=== PATIENT | female | born 1995 ===

== ENCOUNTER 2017-08-14 21:42 | Emergency (ER) | payer SELFPAY ==
[2017-08-14 21:53] VITALS: BP 98/63; PULSE 100; RESP 18; TEMP 98; O2SAT 100
[2017-08-14 23:22] LABS: SQUAMOUS EPITHIAL 3 /hpf (0-5); URINE BACTERIA RARE (<OCC); URINE BILIRUBIN NEGATIVE (NEGATIVE); URINE BLOOD NEGATIVE (NEGATIVE); URINE CLARITY CLOUDY (Clear); URINE COLOR YELLOW (YELLOW); URINE GLUCOSE (UA) NEG (Normal); URINE LEUKOCYTE ESTERASE NEG Leu/uL (Negative); URINE NITRATE NEGATIVE (NEGATIVE); URINE PROTEIN NEGATIVE (NEGATIVE); URINE UROBILINOGEN 0.2-1.0 mg/dL (0.2-1.0)
--- NOTE | 2017-08-14 23:51 | ED PDOC ---
HPI: Female Pain Time Seen by Provider: 08/14/17 22:11 Chief Complaint (Nursing): Female Genitourinary Chief Complaint (Provider): Pelvic Pain History/Exam Limitations: no limitations Onset/Duration Of Symptoms: Intermittent Episodes (3 months) Current Symptoms Are (Timing): Still Present Additional Complaint(s): 22 y/o female presents to ED complaining of intermittent pelvic pain that has been going on for the past 3 months. Patient reports that she has not had her period for 3 months, she is sexually active, had sex unprotected 1 month ago, admits to dyspareunia, and has odor to her urine. She denies vaginal discharge, bleeding, dysuria, fever, nausea, vomiting, rash, or back pain. Past Medical History Reviewed: Historical Data, Nursing Documentation, Vital Signs Vital Signs: Last Vital Signs Temp 98 F 08/14/17 21:52 Pulse 100 H 08/14/17 21:52 Resp 18 08/14/17 21:52 BP 98/63 L 08/14/17 21:52 Pulse Ox 100 08/14/17 21:52 - Medical History PMH: No Chronic Diseases - Surgical History Surgical History: No Surg Hx - Family History Family History: States: Unknown Family Hx - Social History Current smoker - smoking cessation education provided: Yes (dialy) Alcohol: Social Drugs: Denies - Home Medications Home Medications: Ambulatory Orders Medication Instructions Recorded Doxycycline Hyclate 100 mg PO BID #28 capsule 08/14/17 - Allergies Allergies/Adverse Reactions: Allergies Allergy/AdvReac Type Severity Reaction Status Date / Time No Known Allergies Allergy Verified 08/14/17 21:57 Review of Systems ROS Statement: Except As Marked, All Systems Reviewed And Found Negative Constitutional: Negative for: Fever Gastrointestinal: Negative for: Nausea, Vomiting Genitourinary Female: Positive for: Pelvic Pain. Negative for: Dysuria, Vaginal Discharge, Vaginal Bleeding Musculoskeletal: Negative for: Back Pain Physical Exam - Reviewed Nursing Documentation Reviewed: Yes Vital Signs Reviewed: Yes - Physical Exam Appears: Positive for: Non-toxic, No Acute Distress Head Exam: Positive for: ATRAUMATIC Skin: Positive for: Normal Color, Warm Eye Exam: Positive for: Normal appearance, EOMI, PERRL ENT: Positive for: Normal ENT Inspection Neck: Positive for: Normal, Painless ROM, Supple Cardiovascular/Chest: Positive for: Regular Rate, Rhythm. Negative for: Murmur Respiratory: Positive for: Normal Breath Sounds. Negative for: Respiratory Distress Gastrointestinal/Abdominal: Positive for: Normal Exam, Soft. Negative for: Tenderness, Mass, Distended, Guarding, Rebound Pelvic Exam: Positive for: External Exam Normal, Speculum Exam Normal, Bimanual Exam Normal, No Cerv. 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 Negative for: Active Bleeding, Cervicitis, Discharge, Lesions, Tender W/Cervical Motion, Tender Adnexa, Tender Uterus Back: Positive for: Normal Inspection. Negative for: L CVA Tenderness, R CVA Tenderness, Vertebral Tenderness Extremity: Positive for: Normal ROM. Negative for: Tenderness, Pedal Edema, Deformity, Swelling Neurologic/Psych: Positive for: Alert, cotton converter II-XII, Oriented. Negative for: Motor/Sensory Deficits - ECG O2 Sat by Pulse Oximetry: 100 (RA) Pulse Ox Interpretation: Normal Medical Decision Making Medical Decision Making: Lab results reviewed : Uhcg (-), UA is (-) for UTI, GC cx sent. Diagnostic results d/w the patient in great detail. Possible diagnosis of PID d/ w the patient. Treated with rocephin 250 mg IM. Based on history, exam and diagnostic results, plan will be for outpatient follow up with the clinic. Patient instructed to follow-up with the clinic in 1-2 days without fail. Take medication-doxycycline as prescribed. Return to the emergency room at any time for any new or worsening symptoms. Patient states she fully agrees with and understands discharge instructions. States that she agrees with the plan and disposition. Verbalized and repeated discharge instructions and plan. I have given the patient opportunity to ask any additional questions. Disposition - Clinical Impression Clinical Impression: Pelvic pain, PID (pelvic inflammatory disease) - Patient ED Disposition Is Patient to be Admitted: No Counseled Patient/Family Regarding: Studies Performed, Diagnosis, Need For Followup, Rx Given - Disposition Referrals: [facility] [Outside] Disposition: Routine/Home Disposition Time: 23:49 Condition: STABLE Additional Instructions: Thank you for letting us take care of you today. You were treated for pelvic pain, consider PID. The emergency medical care you received today was directed at your acute symptoms. If you were prescribed any medication, please fill it and take as directed. It may take several days for your symptoms to resolve. Return to the Emergency Department if your symptoms worsen, do not improve, or if you have any other problems. Please call one of the physicians/clinics you have been referred to that are listed on the Patient Visit Information form that is included in your discharge packet. Bring any paperwork you were given at discharge with you along with any medications you are taking to your follow up visit. Our treatment cannot replace ongoing medical care by a primary care provider (PCP) outside of the emergency department. Thank you for allowing the [facility] team to be part of your care today. 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
[2017-08-14] MEDS ORDERED: cefTRIAXone (Rocephin) 250 mg Inj IM STA (23:54)
[2017-08-15] MEDS ORDERED: cefTRIAXone (Rocephin) 250 mg Inj ONE (00:11)
[2017-08-15] MEDS ORDERED: Sterile Water 10 ML IV ONE (00:16)
== END 2017-08-15 01:10 | disposition home or self-care (01) ==
LOC: H.ER 21:42
DX: N73.9 Female pelvic inflammatory disease, unspecified (principal)
CPT/HCPCS: 81003; 81025; 87081; 87086; 96372; 99282; J0696